=== PATIENT | female | born 1955 | race Caucasian/White ===

== ENCOUNTER 2019-05-20 10:34 | Day surgery (SDC) | payer MEDICARE, BC ==
--- NOTE | 2019-05-20 07:21 | History and Physical - [facility] ---
CHIEF COMPLAINT/HISTORY OF CHIEF COMPLAINT: This patient with a history of an intractable lumbar radiculopathy has a spinal infusion system infusing Morphine at 5.495 mg a day. Over the last number of refills and reprogramming's battery depletion was noted. She is here for battery replacement without parameter changes. PAST MEDICAL HISTORY: Intractable radiculopathy. PAST SURGICAL HISTORY: Hip replacement. MEDICATIONS ON ADMISSION: List to be provided ALLERGIES: PENICILLIN, CODEINE, ERYTHROMYCIN, AND ULTRAM. FAMILY/PSYCHOSOCIAL HISTORY: Social history - Caffeine. Family history - Noncontributory. SYSTEMS REVIEW: The patient is appropriate in no acute distress. The remainder of the systems review is positive for sleep disturbance, rheumatic fever during childhood, degenerative arthritis, and depression. PHYSICAL EXAMINATION: Height is 5'3", weight is 190. No vital signs. HEENT: Within normal limits. LUNGS: Clear. HEART: Rapid and regular. ABDOMEN: Nontender. MUSCULOSKELETAL: Examination of the musculoskeletal system identifies the pump in the right posterior gluteal margin, the incision is intact. The underlying pain pattern is radicular to the lower extremities. NEUROLOGIC: Cranial nerves are intact. IMPRESSION: 1. LUMBAR RADICULOPATHY, ICD-10 CODE M54.16 AND M54.17. 2. IMPLANTED SPINAL INFUSION SYSTEM USING MORPHINE. PLAN: The patient is here for battery change on an outpatient basis with no parameter changes. The procedure has been discussed and reviewed and the patient has consented. JOB NUMBER: [id number] MTDD
[~2019-05-20 10:34] MED LIST: ACETAMINOPHEN 1,000 MG/100 ML BTL IVPB ONE; CLINDAMYCIN 600MG/50ML PREMIX 600 MG/50 ML BAG IVPB ONE; FAMOTIDINE 20MG TABLET PO ONE; HYDROMORPHONE HCL IV ONE; HYDROMORPHONE PF 2MG/ML AMP 0.008 MG in 0.9 % SODIUM CHLORIDE 10ML VIA 0.996 ML IV ONE; MECLIZINE 25 MG TABLET PO ONE; METOCLOPRAMIDE 10 MG TABLET PO ONE; SODIUM CHLORIDE 0.9% IV ONE
[2019-05-20] MEDS ORDERED: PROPOFOL 10 MG/ML VIAL IV ONE (10:35)
[2019-05-20] MEDS ORDERED: LIDOCAINE 2% MDV (20MG/ML) 20ML VIAL IV ONE (10:35)
[2019-05-20] MEDS ORDERED: MIDAZOLAM HCL 2MG/2ML VIAL IV ONE (10:35)
[2019-05-20] MEDS ORDERED: FENTANYL PF 100MCG/2ML VIAL IV ONE (10:35)
[2019-05-20] MEDS ORDERED: RINGERS SOLUTION,LACTATED 1,000 ML IV ONE ×2 (10:52→11:48)
[2019-05-20] MEDS ORDERED: Clindamycin 600mg vial 150 MG/ML VIAL IR ONE (11:30)
[2019-05-20] MEDS ORDERED: LIDOCAINE 1% W/EPI 1:200,000 MPF 30ML SQ ONE (11:30)
[2019-05-20] MEDS ORDERED: BUPIVACAINE 0.5% W/EPI MPF 30 ML VIAL SQ ONE (11:30)
--- NOTE | 2019-05-20 14:22 | Operative Note - [facility] ---
DATE OF SURGERY: 05/20/2019 PREOPERATIVE DIAGNOSIS: 1. LUMBAR RADICULOPATHY, ICD-10 CODE M54.16 AND M54.17. 2. IMPLANTED SPINAL OPIOID INFUSION SYSTEM MORPHINE WITH BATTERY DEPLETION. OPERATION: 1. FLUOROSCOPICALLY GUIDED INCISION, SUBCUTANEOUS DISSECTION, AND REMOVAL AND REPLACEMENT OF PROGRAMMABLE PUMP RIGHT POSTERIOR GLUTEAL MARGIN. 2. DIAGNOSTIC MYELOGRAPHY WITH RADIOLOGIC SUPERVISION AND INTERPRETATION. 3. PROGRAMMING OF PUMP BACK TO ORIGINAL PARAMETERS, USING MORPHINE AT 4.2 MG PER DAY. SURGEON: Paulino Jolly D.O. ANESTHESIA: Local sedation. ANESTHESIA PROVIDER: Jean Issa CRNA INDICATION: This patient presents with history of intractable lumbar radiculopathy. Due to the failure of therapies, a programmable spinal infusion device has been placed. Over the last number of refills battery depletion was identified. She is here for battery change without parameter changes. PROCEDURE: Intravenous line, vital sign monitoring, IV sedation, prepped and draped, sterile technique. Under imaging the pump pouch at the right posterior gluteal margin was infiltrated with local, an incision was made, and subcutaneous dissection was conducted in the pump pouch. The pump was exteriorized. The pump was from the indwelling catheter, a new 20 ml programmable pump pre-filled Morphine 25 mg per ml placed onto the field. Antibiotic irrigation, Bovie for hemostasis. The pump was then interfaced with the existing catheter. The pump was placed into the original pouch. While in the pouch a curved 24-gauge Aguila needle was inserted into the access point, 1 ml of catheter contents was aspirated clearing the catheter of opioid and CSF mixture. Diagnostic myelography was performed through the access port, the resulting flow characteristics showed appropriate catheter position at T11-T12. Smooth flow of contrast noted. Appropriate functionality of the catheter pump combination was then confirmed. The incision was closed using Stratafix suture 2-0 fascia and 3-0 skin. Dermabond closure approximating the edges of the wound. The pump was programmed back to original parameters. She was transported to the Recovery Room stable. No side effects from the procedure or sedation. When fully awake and alert she is prepared for discharge. DISCHARGE INSTRUCTIONS: 1. The sites are to remain clean and dry. No showering or bathing in any way that would disrupt dressings. If it happens contact the clinic. 2. Standard medications are resumed including antibiotic Levaquin 500 mg once a day for fourteen days. 3. A script for [place], five a day, seven days has been provided for management of incisional lines. Office to contact the patient in 12-24 hours to set up a time in 7-10 days for us to evaluate the sites. All other instructions are provided. Numbers to contact if problems given. She was then discharged. JOB NUMBER: [id number] MTDD
== END 2019-05-20 12:25 | disposition home or self-care (01) ==
LOC: SUR 10:34
PROVIDERS: ATTEND Pain Medicine Interventional Pain Medicine
DX: Z45.1 Encounter for adjustment and management of infusion pump (principal); M54.17 Radiculopathy, lumbosacral region; E78.00 Pure hypercholesterolemia, unspecified; I89.0 Lymphedema, not elsewhere classified
CPT/HCPCS: 62367; C1776; J7120